=== PATIENT | female | born 1965 | race Caucasian/White ===

== ENCOUNTER → 2016-11-19 | Outpatient (CLI) | payer OTHER ==
--- NOTE | 2016-11-19 11:33 | USB ---
Reason for exam: clinical finding. History: Implants in both breasts, 2010. Physical Findings: Nurse did not find any significant physical abnormalities on exam. US Breast BILAT Right breast ultrasound includes all four quadrants, the retroareolar region and axilla. Finding demonstrates no cystic or solid lesion seen. Left breast ultrasound includes all four quadrants, the retroareolar region and axilla. Finding demonstrates no cystic or solid lesion seen. These results were verbally communicated with the patient and result sheet given to the patient on 11/19/16. ASSESSMENT: Negative, BI-RAD 1 RECOMMENDATION: Follow-up diagnostic mammogram of both breasts. (Due now for mammogram) Manage on a clinical basis with regard to bilateral breast pain.
== END | disposition home or self-care (01) ==
LOC: RADUSWWP 09:49
PROVIDERS: ATTEND Family Medicine
DX: N64.4 Mastodynia (principal)

== ENCOUNTER → 2016-11-20 | Outpatient (CLI) | payer SELFPAY ==
--- NOTE | 2016-11-20 11:29 | MM ---
Reason for exam: screening (asymptomatic). History: Implants in both breasts, 2010. Taking progesterone for 11 years beginning at age 40. Physical Findings: No breast exam performed. MG Screening Mammo Implant/CAD Bilateral CC, MLO, and ID view(s) were taken. Prior study comparison: November 19, 2016, bilateral US breast BILAT. The breast tissue is heterogeneously dense. This may lower the sensitivity of mammography. Bilateral saline implants. Scattered bilateral breast calcifications are present. Many of these are vascular calcifications. Some linear, possibly secretory. Some are curvilinear, possibly milk of calcium. As a discrete group is not seen, a 6 month follow up is recommended at which time lateral views can be included. These results were verbally communicated with the patient and result sheet given to the patient on 11/20/16. ASSESSMENT: Probably benign, BI-RAD 3 RECOMMENDATION: Follow-up diagnostic mammogram of both breasts in 6 months. (only implant displacement views, include bilateral lateral views) [facility]
== END | disposition home or self-care (01) ==
LOC: RADMAMWWP 10:19
PROVIDERS: ATTEND Family Medicine
DX: Z12.31 Encounter for screening mammogram for malignant neoplasm of breast (principal); Z98.82 Breast implant status

== ENCOUNTER 2017-09-06 02:02 | Emergency (ER) | payer BC, OTHER ==
[2017-09-06 02:09] VITALS: BP 148/77; PULSE 89; RESP 18; TEMP 98.3
--- NOTE | 2017-09-06 02:28 | XR ---
EXAMINATION TYPE: XR foot complete RT DATE OF EXAM: 09/06/2017 COMPARISON: NONE HISTORY: Right foot pain TECHNIQUE: 3 views FINDINGS: I see no fracture nor dislocation. Metatarsals are intact. Joint spaces are normal. IMPRESSION: Negative right foot exam.
--- NOTE | 2017-09-06 02:30 | XR ---
EXAMINATION TYPE: XR ankle complete RT DATE OF EXAM: 09/06/2017 COMPARISON: NONE HISTORY: Pain TECHNIQUE: 3 views. FINDINGS: Ankle mortise is anatomic. I see no fracture nor dislocation. Joint spaces are normal. IMPRESSION: Normal right ankle
[2017-09-06] MEDS ORDERED: traMADol 50 MG STARTER PACK 3 TAB BTL PO STA (03:41)
[2017-09-06] MEDS ORDERED: IBUPROFEN 600 MG TAB PO STA (03:41)
--- NOTE | 2017-09-06 03:41 | ED ---
Fall HPI - General Chief Complaint: Fall Stated Complaint: Fall, ankle injury Time Seen by Provider: 09/06/17 02:50 Source: patient Mode of arrival: wheelchair - History of Present Illness Initial Comments: This patient's 52-year-old woman who presents to be evaluated for right ankle injury. The patient states that she had been helping to search for her missing daughter and had climbed over a fence and then fallen. She states that the time she had a fair amount of adrenaline going and was able to walk on the ankle without too much pain. She states that now that he adrenaline has subsided she is having significant pain with walking. She indicates the lateral aspect of the ankle. No previous surgeries or fractures. MD Complaint: fall -: hour(s) Fall From: other (Climbing a fence) When Fall Occurred: 1-[address] Fall Occurred: other Loss of Consciousness: none Prolonged Down Time?: no Symptoms Prior to Fall: none Location - Extremities: Right: Ankle Severity: severe Quality: aching - Related Data Previous Rx's Medication Instructions Recorded Ibuprofen [Motrin] 600 mg PO Q8HR PRN #20 tab 09/06/17 Allergies Allergy/AdvReac Type Severity Reaction Status Date / Time tetracycline Allergy Rash/Hives Verified 09/06/17 02:09 Review of Systems ROS Statement: Those systems with pertinent positive or pertinent negative responses have been documented in the HPI. ROS Other: All systems not noted in ROS Statement are negative. Constitutional: Denies: fever, weakness Musculoskeletal: Reports: as per HPI, joint swelling, arthralgia Skin: Denies: rash Neurological: Denies: headache, weakness, numbness Past Medical History Past Medical History: No Reported History History of Any Multi-Drug Resistant Organisms: None Reported Past Surgical History: Tonsillectomy Past Psychological History: Anxiety Smoking Status: Never smoker Past Alcohol Use History: None Reported Past Drug Use History: None Reported General Exam Limitations: no limitations General appearance: alert, in no apparent distress Extremities exam: Present: tenderness, normal capillary refill, joint swelling. Absent: calf tenderness Right Knee exam: Present: normal inspection, full ROM. Absent: tenderness, swelling Ankle exam: Present: tenderness (Lateral malleolus), swelling (Lateral malleolus ), abrasion, ecchymosis. Absent: laceration, deformity, crepitus, dislocation, erythema Neurovascular tendon exam: Present: no vascular compromise. Absent: pulse deficit, abnormal cap refill, motor deficit, sensory deficit, decreased fine/ light touch Skin exam: Present: warm, dry, normal color, abrasion. Absent: rash Course Vital Signs 09/06/17 02:06 Temperature 98.3 F Pulse Rate 89 Respiratory 18 Rate Blood Pressure 148/77 O2 Sat by Pulse 100 Oximetry Disposition Clinical Impression: Fall, Ankle sprain Disposition: HOME SELF-CARE Condition: Good Instructions: Ankle Sprain (ED) Prescriptions: Ibuprofen [Motrin] 600 mg PO Q8HR PRN #20 tab PRN Reason: Pain Is patient prescribed a controlled substance at d/c from ED?: No Referrals: Conrad Rizvi MD [Primary Care Provider] - 1-2 days Claudio Bahena DO [Doctor of Osteopathic Medicine] - 1-2 days
== END 2017-09-06 04:16 | disposition home or self-care (01) ==
LOC: EC 02:02
DX: S93.401A Sprain of unspecified ligament of right ankle, initial encounter (principal); Z88.1 Allergy status to other antibiotic agents; W17.89XA Other fall from one level to another, initial encounter; Y92.89 Other specified places as the place of occurrence of the external cause; Y93.39 Activity, other involving climbing, rappelling and jumping off
CPT/HCPCS: 73610; 73630; 99283; 29515; L4350

== ENCOUNTER 2017-09-24 10:13 | Inpatient (IN) | payer BC, MEDICAID ==
--- NOTE | 2017-09-24 11:16 | ED ---
Psych HPI - General Chief Complaint: Psychiatric Symptoms Stated Complaint: mental health - petitioned Time Seen by Provider: 09/24/17 10:33 Source: patient, RN notes reviewed Mode of arrival: ambulatory Limitations: no limitations - History of Present Illness Initial Comments: This a 52-year-old female presents emergency Department with police for psychiatric evaluation. Patient was petitioned by family for bizarre behavior. Patient denies any complaints herself. She denies suicidal or homicidal ideation. Patient states that she did have a recent family issues where her daughter ran away and has been traumatic. Patient denies any alcohol or drug use. Denies any physical complaints. Patient is on Wellbutrin, Xanax states that her Xanax doesn't work so she has tried other benzodiazepines. - Related Data Home Medications Medication Instructions Recorded Confirmed ALPRAZolam [Xanax] 1 mg PO HS 09/24/17 09/24/17 Citalopram Hydrobromide 40 mg PO DAILY 09/24/17 09/24/17 [Citalopram HBr] Fluticasone Nasal [place] [Flonase 2 spr EA NOSTRIL DAILY 09/24/17 09/24/17 Nasal [place]] Thyroid,Pork [Thyroid] 60 mg PO DAILY 09/24/17 09/24/17 buPROPion XL [Wellbutrin Xl] 150 mg PO DAILY 09/24/17 09/24/17 Allergies Allergy/AdvReac Type Severity Reaction Status Date / Time tetracycline Allergy Rash/Hives Verified 09/24/17 10:31 Review of Systems ROS Statement: Those systems with pertinent positive or pertinent negative responses have been documented in the HPI. ROS Other: All systems not noted in ROS Statement are negative. Past Medical History Past Medical History: No Reported History Additional Past Medical History / Comment(s): celiac History of Any Multi-Drug Resistant Organisms: None Reported Past Surgical History: Tonsillectomy Past Psychological History: Anxiety Smoking Status: Never smoker Past Alcohol Use History: None Reported Past Drug Use History: None Reported General Exam Limitations: no limitations General appearance: alert, in no apparent distress Head exam: Present: atraumatic, normocephalic, normal inspection Neck exam: Present: normal inspection, full ROM. Absent: tenderness, meningismus, lymphadenopathy Respiratory exam: Present: normal lung sounds bilaterally. Absent: respiratory distress, wheezes, rales, rhonchi, stridor Cardiovascular Exam: Present: regular rate, normal rhythm, normal heart sounds. Absent: systolic murmur, diastolic murmur, rubs, gallop, clicks GI/Abdominal exam: Present: soft, normal bowel sounds. Absent: distended, tenderness, guarding, rebound, rigid Neurological exam: Present: alert, oriented X3, CN II-XII intact Skin exam: Present: warm, dry, intact, normal color. Absent: rash Course Vital Signs 09/24/17 10:25 Temperature 98.2 F Pulse Rate 97 Respiratory 18 Rate Blood Pressure 119/76 O2 Sat by Pulse 100 Oximetry Medical Decision Making - Lab Data Lab Results 09/24/17 Range/Units 11:17 Urine Opiates Screen Not Detected (NotDetected) Ur Oxycodone Screen Not Detected (NotDetected) Urine Methadone Screen Not Detected (NotDetected) Ur Propoxyphene Screen Not Detected (NotDetected) Ur Barbiturates Screen Not Detected (NotDetected) U Tricyclic Antidepress Not Detected (NotDetected) Ur Phencyclidine Scrn Not Detected (NotDetected) Ur Amphetamines Screen Not Detected (NotDetected) U Methamphetamines Scrn Not Detected (NotDetected) U Benzodiazepines Scrn Detected H (NotDetected) Urine Cocaine Screen Not Detected (NotDetected) U Marijuana (THC) Screen Not Detected (NotDetected) Disposition Clinical Impression: Depression Disposition: ADMITTED IP TO THIS [facility] Condition: Stable Referrals: Conrad Rizvi MD [Primary Care Provider] - 1-2 days
[2017-09-24 11:41] LABS: Amphetamine Screen,Urine Not Detected (NotDetected); Barbiturate Screen,Urine Not Detected (NotDetected); Benzodiazepines Screen,Urine Detected (NotDetected); Cocaine Screen,Urine Not Detected (NotDetected); Methadone Screen, Urine Not Detected (NotDetected); Opiate Screen,Urine Not Detected (NotDetected); Oxycodone Screen, Urine Not Detected (NotDetected); Phencyclidine Screen,Urine Not Detected (NotDetected); Tricyclic Antidepressant,Urine Not Detected (NotDetected); Urn Cannabinoid Scrn Not Detected (NotDetected)
[2017-09-24] MEDS ORDERED: MAGNESIUM HYDROXIDE 2,400 MG/10 ML CUP PO PRN (15:03)
[2017-09-24] MEDS ORDERED: LORazepam 1 MG TAB PO PRN (15:03)
[2017-09-24] MEDS ORDERED: MAG HYDROX/AL HYDROX/SIMETH 30 ML CUP PO PRN (15:03)
[2017-09-24] MEDS ORDERED: LORazepam 2 MG/ML INJ IM PRN (15:05)
--- NOTE | 2017-09-24 16:46 | P.CONS ---
History of Present Illness - Reason for Consult Hypothyroidism, medical clearance - History of Present Illness 52-year-old female was brought in to the hospital for bizarre behavior, depressive mood. Patient was subsequently admitted to psychiatric floor as consulted for medical clearance. Patient denied any physical complaints denied any fever, chills, nausea, not vomiting, dysuria. Review of Systems REVIEW OF SYSTEMS: CONSTITUTIONAL: No fever, no malaise, no fatigue. HEENT: No recent visual problems or hearing problems. Denied any sore throat. CARDIOVASCULAR: No chest pain, orthopnea, PND, no palpitations, no syncope. PULMONARY: No shortness of breath, no cough, no hemoptysis. GASTROINTESTINAL: No diarrhea, no nausea, no vomiting, no abdominal pain. Normoactive bowel sounds. NEUROLOGICAL: No headaches, no weakness, no numbness. HEMATOLOGICAL: Denies any bleeding or petechiae. GENITOURINARY: Denies any burning micturition, frequency, or urgency. MUSCULOSKELETAL/RHEUMATOLOGICAL: Denies any joint pain, swelling, or any muscle pain. ENDOCRINE: Denies any polyuria or polydipsia. The rest of the 14-point review of systems is negative. Past Medical History Past Medical History: No Reported History Additional Past Medical History / Comment(s): celiac History of Any Multi-Drug Resistant Organisms: None Reported Past Surgical History: Tonsillectomy Past Psychological History: Anxiety Smoking Status: Never smoker Past Alcohol Use History: None Reported Past Drug Use History: None Reported Medications and Allergies Home Medications Medication Instructions Recorded Confirmed Type ALPRAZolam [Xanax] 1 mg PO HS 09/24/17 09/24/17 History Citalopram Hydrobromide 40 mg PO DAILY 09/24/17 09/24/17 History [Citalopram HBr] Fluticasone Nasal [place] [Flonase 2 spr EA NOSTRIL DAILY 09/24/17 09/24/17 History Nasal [place]] Thyroid,Pork [Thyroid] 60 mg PO DAILY 09/24/17 09/24/17 History buPROPion XL [Wellbutrin Xl] 150 mg PO DAILY 09/24/17 09/24/17 History Allergies Allergy/AdvReac Type Severity Reaction Status Date / Time tetracycline Allergy Rash/Hives Verified 09/24/17 10:31 Physical Exam Vitals: Vital Signs Temp Pulse Resp BP Pulse Ox 09/24/17 10:25 98.2 F 97 18 119/76 100 Intake and Output 09/24/17 09/24/17 09/24/17 06:59 14:59 22:59 Other: Weight 56.245 kg PHYSICAL EXAMINATION: GENERAL: The patient is alert and oriented x3, not in any acute distress. Well developed, well nourished. HEENT: Pupils are round and equally reacting to light. EOMI. No scleral icterus. No conjunctival pallor. Normocephalic, atraumatic. No pharyngeal erythema. No thyromegaly. CARDIOVASCULAR: S1 and S2 present. No murmurs, rubs, or gallops. PULMONARY: Chest is clear to auscultation, no wheezing or crackles. ABDOMEN: Soft, nontender, nondistended, normoactive bowel sounds. No palpable organomegaly. MUSCULOSKELETAL: No joint swelling or deformity. EXTREMITIES: No cyanosis, clubbing, or pedal edema. NEUROLOGICAL: Gross neurological examination did not reveal any focal deficits. SKIN: No rashes. Results Labs: Abnormal Lab Results - Last 24 Hours (Table) 09/24/17 Range/Units 11:17 U Benzodiazepines Scrn Detected H (NotDetected) Assessment and Plan Plan: -Hypothyroidism continue with [place] Thyroid. TSH is being obtained CBC and basic metabolic profile is being up and which are appropriate. -Severe depression and other psychiatric issues: Management as per primary service We'll sign off at this point of time please call us back if needed.
[2017-09-24 21:32] LABS: Appearance,Urine Cloudy (Clear); Bilirubin,Urine Negative (Negative); Blood,Urine Negative (Negative); Calcium Oxalate Crystals,Urine Occasional /hpf; Color,Urine Yellow; Glucose,Urine (UA) Negative (Negative); Hyaline Casts,Urine 1 /lpf (0-2); Ketones,Urine Trace (Negative); Leukocyte Esterase,Urine Negative (Negative); Mucus,Urine Occasional /hpf; Nitrite,Urine Negative (Negative); PH, Urine 5.5 (5.0-8.0); Protein,Urine Negative (Negative); RBC,Urine 4 /hpf (0-5); Specific Gravity,Urine 1.012 (1.001-1.035); Squamous Epithelial Cell,Urine 1 /hpf (0-4); Urobilinogen,Urine <2.0 mg/dL (<2.0); WBC,Urine 2 /hpf (0-5)
[2017-09-25 09:09] LABS: Basophils % (A) 1 %; Eosinophils # (A) 0.1 k/uL (0-0.7); Eosinophils % (A) 1 %; HCT 39.2 % (34.0-46.0); HGB 13.1 gm/dL (11.4-16.0); Lymphocytes % (A) 25 %; MCHC 33.4 g/dL (31.0-37.0); MCV 92.7 fL (80.0-100.0); Mean Platelet Volume 8.1; Monocytes # (A) 0.2 k/uL (0-1.0); Monocytes % (A) 5 %; Neutrophils # (A) 2.7 k/uL (1.3-7.7); Neutrophils % (A) 66 %; Platelet Count 166 k/uL (150-450); RBC 4.23 m/uL (3.80-5.40); RDW 12.3 % (11.5-15.5); WBC 4.1 k/uL (3.8-10.6)
[2017-09-25] MEDS: FLUTICASONE 50MCG/SPRAY NASAL 16GM EA NOSTRIL SCH (09:29)
[2017-09-25] MEDS: THYROID, PORK 30 MG TAB PO SCH (09:29)
[2017-09-25] MEDS: buPROPion SR 150 MG TABLET.ER PO SCH (10:09)
[2017-09-25] MEDS: IBUPROFEN 200 MG TAB PO PRN (10:09)
[2017-09-25 10:10] LABS: ALT 26 U/L (9-52); AST 25 U/L (14-36); Albumin 4.7 g/dL (3.5-5.0); Alkaline Phosphatase 63 U/L (38-126); Anion Gap 11 mmol/L; Blood Urea Nitrogen 9 mg/dL (7-17); Carbon Dioxide 24 mmol/L (22-30); Chloride 106 mmol/L (98-107); Glucose 111 mg/dL (74-99); Potassium 4.1 mmol/L (3.5-5.1); Sodium 141 mmol/L (137-145); Total Bilirubin 0.5 mg/dL (0.2-1.3); Total Protein 7.2 g/dL (6.3-8.2)
[2017-09-25 11:24] VITALS: BMI 20.5
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
[2017-09-25] MEDS: MELATONIN 3 MG TABLET PO SCH (19:57)
[2017-09-25] MEDS: ACETAMINOPHEN TAB 325 MG TAB PO PRN (19:58)
[2017-09-26] MEDS: FLUTICASONE 50MCG/SPRAY NASAL 16GM EA NOSTRIL SCH (08:35)
[2017-09-26] MEDS: buPROPion SR 150 MG TABLET.ER PO SCH (08:35)
[2017-09-26] MEDS: THYROID, PORK 30 MG TAB PO SCH (08:35)
[2017-09-26] MEDS: CYCLOBENZAPRINE 5 MG TAB PO PRN (12:10)
--- NOTE | 2017-09-26 12:24 | PN ---
PROGRESS NOTE Patient seen, interviewed, found very sad and withdrawn. The patient reports that it is a misunderstanding that she is here. She reports that her sister wrote a letter stating that she is not a fit mother. She reports that when she was a kid her mother loved her more and her sister did not get much love so she is trying to be mean to her. It is not her fault that her mother gave more love to her. She thinks she is all fine and she needs to go home. She has been tearful during the interview. She is sad. She is upset about her daughter who has been hallucinating. She is concerned and worried about her. Her anxiety is getting worse. She reports now she started on Wellbutrin, which she took it this morning and tolerated it well. Reporting no side effects. She also reports not sleeping well last night because of the chronic neck pain and she said the pillows are not good as much. She denies any active suicidal or homicidal ideation. Denies hearing voices or seeing things. OBJECTIVE: MENTAL STATUS EXAMINATION: Patient is alert, awake, oriented x4. Has poor eye contact. Speech few word sentences. Mood dysphoric and anxious with congruent affect. She is tearful during the interview. Denies any suicidal, homicidal ideation. She denies hearing voices or seeing things. No paranoid delusions. Intellect is average. Attention is good. Insight, judgment, improving slowly gradually. ASSESSMENT: Adjustment disorder with depressed mood and anxiety features. PLAN: Will continue with the current medications for now as she has been tolerating well and reporting no side effects. The patient requested Flexeril, so we will use a small dose of Flexeril to help with the neck pain. Encouraged groups and meetings, supportive provided. MMODL / IJN: [id number] /
[2017-09-26] MEDS: IBUPROFEN 200 MG TAB PO PRN (13:44)
[2017-09-26] MEDS: MELATONIN 3 MG TABLET PO SCH (20:06)
[2017-09-27] MEDS: CYCLOBENZAPRINE 5 MG TAB PO PRN (01:03)
[2017-09-27] MEDS: ACETAMINOPHEN TAB 325 MG TAB PO PRN (01:16)
[2017-09-27] MEDS: buPROPion SR 150 MG TABLET.ER PO SCH (08:26)
[2017-09-27] MEDS: FLUTICASONE 50MCG/SPRAY NASAL 16GM EA NOSTRIL SCH (08:26)
[2017-09-27] MEDS: THYROID, PORK 30 MG TAB PO SCH (08:26)
[2017-09-27] MEDS ORDERED: IBUPROFEN 400 MG TAB PO PRN (13:45)
--- NOTE | 2017-09-27 14:07 | PN ---
PROGRESS NOTE DATE OF SERVICE: Today is September 27, 2017. The patient is seen and interviewed, found sitting in her room. Found in mild distress as she has been hurting in her neck. She reports that her neck is still bothering her and she could not sleep due to neck pain. She stated Flexeril did help her to some extent, but she would like to take some Motrin and would like to have some increase in Flexeril. She still feels that she is better and she thinks that it is her daughter who is suicidal and she is not. She is working on coping skills. She is denying any other issues. MENTAL STATUS EXAMINATION: Patient is alert and oriented x4. Has fair eye contact. Speech few word sentences. Mood dysphoric and irritable with counter affect. She denies any suicidal ideation. I did not see her responding to internal stimuli and no paranoid delusions. Intellect is average. Attention is better. Insight and judgment improving slowly and gradually. ASSESSMENT: Adjustment disorder with depressed mood and anxiety features. PLAN: We will start her on Motrin using the 400 mg and would titrate up the dose of Flexeril to help with pain component to give her some relief. We will encouraged to attend groups and meetings. Supportive therapy provided. MMODL / IJN: [id number] /
[2017-09-27] MEDS: MELATONIN 3 MG TABLET PO SCH (20:22)
[2017-09-27] MEDS: CYCLOBENZAPRINE 10 MG TAB PO PRN (20:45)
[2017-09-28 06:35] VITALS: BP 115/67; PULSE 71; RESP 18; TEMP 97.8
[2017-09-28] MEDS: FLUTICASONE 50MCG/SPRAY NASAL 16GM EA NOSTRIL SCH (08:12)
[2017-09-28] MEDS: THYROID, PORK 30 MG TAB PO SCH (08:13)
[2017-09-28] MEDS: buPROPion SR 150 MG TABLET.ER PO SCH (08:13)
[2017-09-28] MEDS: CYCLOBENZAPRINE 10 MG TAB PO PRN (11:19)
--- NOTE | 2017-09-28 11:42 | P.DS ---
Providers Date of admission: 09/24/17 14:26 Expected date of discharge: 09/28/17 Attending physician: Cheyenne Aparicio MD Consults: 09/24/17 15:03 Consult Physician Routine Consulting Provider: Conrad Rizvi Consult Reason/Comments: follow up H & P Do you want consulting provider notified?: Yes Primary care physician: Conrad Rizvi Hospital Course: Discharge Diagnosis: adjustment reaction with mixed features Reason for Admission: Patient is a 52-year-old female was brought to the emergency room on a pickup order. A petition was completed by her sister. Apparently several weeks ago the patient had filed to parts picker orders on her daughter dating that the patient was having psychotic symptoms the patient was seen in the emergency room and released. Patient states to me that her sister who filed the petition has made up all of these lies and states that none of the allegations on the petition are true. She states her sister Xuan who completed the petition has made these lies up because "I am the child that took away the love from her mother". Patient states that Xuan blames her for her daughter's leaving the house, patient describes it as walking off. She states that her sister lives in [place] and had come up here to help her sister-in- law. Patient denies any of the allegations that she checks that her children cell phones, takes their paychecks and then distributes the money, states that she is not controlling and states that none of the allegations are true. She stated that her sister Xuan is always trying to do a "broderick act" on their other sister Kerry who also lives in [place]. Patient states that when her 21- year-old daughter left the house without taking her medication for her clothing she became quite upset and nervous stating that she went to her primary care physician who restarted her on Celexa on September 05 2 doses of 40 mg then the patient complained of side effects and was switched to Wellbutrin 150 mg and states it's been working well. She states that she is also been using Xanax 0.5 mg 1-2 times a week at night to help with her sleep. Patient states she is very concerned about her daughter because she states that her daughter been hearing and seeing things and had been treated by her primary care physician with Celexa for the symptoms and would not discuss this. Patient states that these statements are true and that it is her daughter who had these symptoms and that she is concerned about her because she's not on any medication and continues to deny the symptoms to everyone who interviews her. When I confronted the patient with the fact that there were numerous allegations on the petition and another unsigned attached letter the patient denied all of it stating that none of these allegations were true and stated that her sister hated her and this is why they were being made. When I questioned the patient regarding why the police were called to their [place] she stated it's because her son was upset that no one in the [place] and helped him locate her daughter and he decided to write a song saying ravene to the mor[place] because he had decided that he wasn't going to go there anymore. The patient was unable to give an explanation for why that the behavior would have elicited the police being called to the [place]. She states it's because the [place] wouldn't allow him to singing the song and so they therefore called the police. Patient is unable to explain to me why her sister in [place] would've been so concerned to have petition the patient for an evaluation and she again cannot come up with an explanation. Patient denies any current symptomatology, denies any auditory or visual hallucinations currently or in the past no paranoid or delusional ideation is elicited from the patient. Patient states that she is upset and anxious and worried about her daughter because she left the house without her medication her clothes. She states that she is not suicidal, she is not feeling depressed just sad over the fact that her daughter is locked away. She states that she has never made any suicide attempts in the past. Patient denies any complaints of allan. Patient also states that protective services came to the house the day prior to her admission she is unaware of why they were called to the house other than the allegations that her sister and made on the petition. Patient continues to deny that any of these allegations were in fact true. Mental status on Admission: Appearance/Attitude: Patient is appropriately dressed and makes eye contact and was cooperative. Behavior: Patient did not exhibit any psychomotor agitation or retardation. Speech/Language: Patient's speech was spontaneous of normal volume and rhythm and she was coherent. Thought Process: Patient was goal-directed however continue to take the conversation back to that her daughter walking away is the root of all the current problems, was no evidence of flight of ideas or loose associations Thought Content: Patient denied any auditory or visual hallucinations no delusions or paranoid ideation were elicited. Patient was insisted that none of the allegations on the petition or on a letter that accompanied the petition or true, stating that everybody is lying about what is going on and this is all secondary to her daughter not getting the proper care and then walking off. Patient states that she has no sleep problems and only uses the Xanax 1-2 times a week. She reports no appetite disturbance but states she has celiac disease and uses [id number] enzymes. Suicidal/Homicidal Ideation: Patient denied any current suicidal or homicidal ideation. Sensorium/Cognition: Patient was alert and oriented to person, place, time and her recent and remote memory were grossly intact. Mood/Affect: Patient's mood was bland and her affect was blunted and was only one time and the patient appeared slightly tearful when discussing her daughter Insight/Judgment: Patient's insight and judgment are limited Hospital Course: Patient agreed to sign in voluntarily, was placed on routine precautions and group and activity therapy were ordered. Patient also had a routine laboratory studies as well as a physical medical consultation. Patient wishes to continue on her Wellbutrin 1 or 50 mg sustained release in the morning that her primary care physician had begun and so she was continued on this. Patient was also begun on melatonin 3 mg at bedtime to target her sleep. Patient continued to report no symptoms of suicidal ideation, no psychotic features were elicited. Patient continued to express her concern regarding her daughter, age 21 who had per the patient "run off" and she was concerned regarding her psychiatric health. Patient attended groups and activities and denied any of the allegations that her sister had made on the petition. She continued to state that her sister was jealous of her because her mother loved her better, as well as stating that her sister blames her for her daughter running off. Patient was not started on Xanax as the patient had been taking it infrequently at home and I suggested to her that she discontinue it when she is discharged and used the melatonin to target her sleep. Patient was also continued on her medications for her medical problems. Patient reported no side effects from the medication and felt she was ready to return home. Patient 's TSH was slightly elevated and I discussed with the patient following up with her primary care physician regarding this. Allergies tetracycline Allergy (Verified 09/24/17 10:31) Rash/Hives Laboratory Last Values WBC 4.1 k/uL (3.8-10.6) 09/25/17 08:30 RBC 4.23 m/uL (3.80-5.40) 09/25/17 08:30 Hgb 13.1 gm/dL (11.4-16.0) 09/25/17 08:30 Hct 39.2 % (34.0-46.0) 09/25/17 08:30 MCV 92.7 fL (80.0-100.0) 09/25/17 08:30 MCH 31.0 pg (25.0-35.0) 09/25/17 08:30 MCHC 33.4 g/dL (31.0-37.0) 09/25/17 08:30 RDW 12.3 % (11.5-15.5) 09/25/17 08:30 Plt Count 166 k/uL (150-450) 09/25/17 08:30 Neutrophils % 66 % 09/25/17 08:30 Lymphocytes % 25 % 09/25/17 08:30 Monocytes % 5 % 09/25/17 08:30 Eosinophils % 1 % 09/25/17 08:30 Basophils % 1 % 09/25/17 08:30 Neutrophils # 2.7 k/uL (1.3-7.7) 09/25/17 08:30 Lymphocytes # 1.0 k/uL (1.0-4.8) 09/25/17 08:30 Monocytes # 0.2 k/uL (0-1.0) 09/25/17 08:30 Eosinophils # 0.1 k/uL (0-0.7) 09/25/17 08:30 Basophils # 0.0 k/uL (0-0.2) 09/25/17 08:30 Sodium 141 mmol/L (137-145) 09/25/17 08:30 Potassium 4.1 mmol/L (3.5-5.1) 09/25/17 08:30 Chloride 106 mmol/L (98-107) 09/25/17 08:30 Carbon Dioxide 24 mmol/L (22-30) 09/25/17 08:30 Anion Gap 11 mmol/L 09/25/17 08:30 BUN 9 mg/dL (7-17) 09/25/17 08:30 Creatinine 0.70 mg/dL (0.52-1.04) 09/25/17 08:30 Est GFR (CKD-EPI)AfAm >90 (>60 ml/min/1.73 sqM) 09/25/17 08:30 Est GFR (CKD-EPI)NonAf >90 (>60 ml/min/1.73 sqM) 09/25/17 08:30 Glucose 111 mg/dL (74-99) H 09/25/17 08:30 Calcium 10.0 mg/dL (8.4-10.2) 09/25/17 08:30 Total Bilirubin 0.5 mg/dL (0.2-1.3) 09/25/17 08:30 AST 25 U/L (14-36) 09/25/17 08:30 ALT 26 U/L (9-52) 09/25/17 08:30 Alkaline Phosphatase 63 U/L (38-126) 09/25/17 08:30 Total Protein 7.2 g/dL (6.3-8.2) 09/25/17 08:30 Albumin 4.7 g/dL (3.5-5.0) 09/25/17 08:30 TSH 6.610 mIU/L (0.465-4.680) H 09/25/17 08:30 Urine Color Yellow 09/24/17 11:17 Urine Appearance Cloudy (Clear) H 09/24/17 11:17 Urine pH 5.5 (5.0-8.0) 09/24/17 11:17 Ur Specific [place] 1.012 (1.001-1.035) 09/24/17 11:17 Urine Protein Negative (Negative) 09/24/17 11:17 Urine Glucose (UA) Negative (Negative) 09/24/17 11:17 Urine Ketones Trace (Negative) H 09/24/17 11:17 Urine Blood Negative (Negative) 09/24/17 11:17 Urine Nitrite Negative (Negative) 09/24/17 11:17 Urine Bilirubin Negative (Negative) 09/24/17 11:17 Urine Urobilinogen <2.0 mg/dL (<2.0) 09/24/17 11:17 Ur Leukocyte Esterase Negative (Negative) 09/24/17 11:17 Urine RBC 4 /hpf (0-5) 09/24/17 11:17 Urine WBC 2 /hpf (0-5) 09/24/17 11:17 Ur Squamous Epith Cells 1 /hpf (0-4) 09/24/17 11:17 Calcium Oxalate Crystal Occasional /hpf (None) H 09/24/17 11:17 Hyaline Casts 1 /lpf (0-2) 09/24/17 11:17 Urine Mucus Occasional /hpf (None) H 09/24/17 11:17 Urine HCG, Qual Not Detected (Not Detectd) 09/24/17 11:17 Urine Opiates Screen Not Detected (NotDetected) 09/24/17 11:17 Ur Oxycodone Screen Not Detected (NotDetected) 09/24/17 11:17 Urine Methadone Screen Not Detected (NotDetected) 09/24/17 11:17 Ur Propoxyphene Screen Not Detected (NotDetected) 09/24/17 11:17 Ur Barbiturates Screen Not Detected (NotDetected) 09/24/17 11:17 U Tricyclic Antidepress Not Detected (NotDetected) 09/24/17 11:17 Ur Phencyclidine Scrn Not Detected (NotDetected) 09/24/17 11:17 Ur Amphetamines Screen Not Detected (NotDetected) 09/24/17 11:17 U Methamphetamines Scrn Not Detected (NotDetected) 09/24/17 11:17 U Benzodiazepines Scrn Detected (NotDetected) H 09/24/17 11:17 Urine Cocaine Screen Not Detected (NotDetected) 09/24/17 11:17 U Marijuana (THC) Screen Not Detected (NotDetected) 09/24/17 11:17 Discharge Mental Status: Appearance/Attitude: Patient is appropriately dressed, makes good eye contact and was cooperative. Behavior: Patient did not exhibit any psychomotor retardation or agitation. Speech/Language: patient's speech was spontaneous of normal volume and rhythm and she was coherent. Thought Process: patient was goal-directed there is no evidence of loose association or flight of ideas. Thought Content: patient denied any auditory or visual hallucinations no delusions or paranoid ideation were elicited. Patient reported that she was still concerned about her daughter who ran away from home stating that she felt she had psychiatric problems that needed to be addressed. Patient states that she still was mourning the of her brother as well. Patient reported that she was sleeping well and her appetite was good. She reported no side effects from the Wellbutrin. Suicidal/Homicidal Ideation: patient denied any current suicidal or homicidal ideation Sensorium/Cognition: patient was alert and oriented to person, place, and time and her recent and remote memory were grossly intact. Mood/Affect: patient's mood was pleasant and her affect was appropriate, patient would become tearful when discussing her brother's . Insight/Judgment: patient's insight and judgment are fair Risk Assessment: patient's risk for self harm is low this patient has no prior history of suicide attempts and no drug or alcohol use history Discharge Plan: patient will return home and will continue on Wellbutrin 150 mg sustained release in the morning and melatonin 3 mg at bedtime. She will also continue on her other medications for her medical problems. Patient states she has sufficient medication at home and does not require any prescriptions. Patient will continue to go to [facility] counseling and was encouraged to be compliant with appointments and medication. Patient was also instructed to follow-up with her primary care physician regarding her slightly elevated TSH. Patient Condition at Discharge: Stable Plan - Discharge Summary New Discharge Prescriptions: New Cyclobenzaprine [Flexeril] 10 mg PO BID PRN tab PRN Reason: Muscle Spasm Melatonin 3 mg PO HS tablet Continue Thyroid,Pork [Thyroid] 60 mg PO DAILY buPROPion XL [Wellbutrin XL] 150 mg PO DAILY Fluticasone Nasal [place] [Flonase Nasal [place]] 2 spr EA NOSTRIL DAILY Discontinued ALPRAZolam [Xanax] 1 mg PO HS Citalopram Hydrobromide [Citalopram HBr] 40 mg PO DAILY Discharge Medication List Fluticasone Nasal [place] [Flonase Nasal [place]] 2 spr EA NOSTRIL DAILY 09/24/17 [ History] Thyroid,Pork [Thyroid] 60 mg PO DAILY 09/24/17 [History] buPROPion XL [Wellbutrin XL] 150 mg PO DAILY 09/24/17 [History] Cyclobenzaprine [Flexeril] 10 mg PO BID PRN tab 09/28/17 [Rx] Melatonin 3 mg PO HS tablet 09/28/17 [Rx] Follow up Appointment(s)/Referral(s): Abdoul[facility] Thomas [Outside] - 09/29/17 3:00 pm (Diya Holden) Conrad Rizvi MD [Primary Care Provider] - 1-2 days Activity/Diet/Wound Care/Special Instructions: activity and diet as tolerated. no guns or weapons in the home. refrain from alcohol and drugs not prescribed by doctor. attend all follow up, after care appointments as scheduled. take all medications as prescribed. please return to [facility] if symptoms worsen. Discharge Disposition: HOME SELF-CARE
== END 2017-09-28 13:18 | disposition home or self-care (01) | DRG 882 ==
LOC: EC 10:13 → 3MHU 14:26
PROVIDERS: ADMIT Psychiatry & Neurology Psychiatry; ATTEND Psychiatry & Neurology Psychiatry
DX: F43.23 Adjustment disorder with mixed anxiety and depressed mood (principal); E03.9 Hypothyroidism, unspecified; G89.29 Other chronic pain; K90.0 Celiac disease; Z62.810 Personal history of physical and sexual abuse in childhood; Z82.49 Family history of ischemic heart disease and other diseases of the circulatory system; Z88.1 Allergy status to other antibiotic agents; Z79.51 Long term (current) use of inhaled steroids; Z79.899 Other long term (current) drug therapy; Z79.890 Hormone replacement therapy
CPT/HCPCS: 80053; 80306; 81001; 81025; 82075; 84443; 85025; 99285

== ENCOUNTER → 2018-06-18 | Outpatient (CLI) | payer BC ==
--- NOTE | 2018-06-18 15:16 | US ---
EXAMINATION TYPE: US abdomen complete DATE OF EXAM: 06/18/2018 COMPARISON: 07/21/2014 CLINICAL HISTORY: R10.13 EPIGASTRIC PAIN. Epigastric pain for 2 months EXAM MEASUREMENTS: Liver Length: 13.1 cm Gallbladder Wall: 0.1 cm CBD: 0.2 cm Spleen: 8.1 cm Right Kidney: 10.1 x 3.8 x 4.3 cm Left Kidney: 10.1 x 4.4 x 4.0 cm Pancreas: visualized portions appear wnl Liver: appears wnl Gallbladder: no evidence of stones Evidence for sonographic Ocampo's sign: no CBD: appears wnl Spleen: appears wnl Right Kidney: no evidence of hydronephrosis Left Kidney: no evidence of hydronephrosis Upper IVC: wnl Abd Aorta: wnl IMPRESSION: 1. Normal abdomen ultrasound as visualized.
== END | disposition home or self-care (01) ==
LOC: RADUSWWP 11:04
PROVIDERS: ATTEND Family Medicine
DX: R10.13 Epigastric pain (principal)
CPT/HCPCS: 76700

== ENCOUNTER → 2020-06-12 | Outpatient (CLI) | payer OTHER | END | disposition home or self-care (01) | LOC: LABWHC1 15:55 | PROVIDERS: ATTEND Family Medicine | DX: Z20.822 Contact with and (suspected) exposure to COVID-19 (principal) | CPT/HCPCS: U0003; C9803 ==

== ENCOUNTER 2023-02-17 13:58 | Emergency (ER) | payer BC ==
--- NOTE | 2023-02-17 14:44 | ED ---
General Adult HPI - General Source: patient, RN notes reviewed Mode of arrival: ambulatory Limitations: no limitations <Santhosh Acosta - Last Filed: 02/17/23 14:43> <Mae Garibay - Last Filed: 02/17/23 23:54> - General Chief complaint: Recheck/Abnormal Lab/Rx Stated complaint: C Diff Time Seen by Provider: 02/17/23 14:43 - History of Present Illness Initial comments: 58 show female presents emergency Department chief complaint of dehydration, C. diff. Patient states she was on multiple antibiotics for ear infections. Patient states she positive for C. diff was placed on vancomycin which symptoms worsen. Patient states that she took a course of Difficle she states that it helped but states that there is still persistent. Patient was evaluated by base be advised, emergency from. (Santhosh Acosta) Patient is a healthy 58yo F who presents to the emergency department today for treatment of C. diff diarrhea. Patient reports that she started having diarrhea in September, in early December she stood positive for C. diff and was started on oral vancomycin, patient reports she took a couple days of this side felt it made the diarrhea worse and she developed a rash around her eyes and interacts loss of she discontinued use of that. She was later started on a course of deficit which she reports she took 6 days of before the diarrhea got worse and she decided to discontinue that. He contacted her primary care provider who advised her that she should come to the ER because she may need IV treatment. (Mae Garibay) - Related Data Home Medications Medication Instructions Recorded Confirmed Albuterol Inhaler [Ventolin Hfa 2 puff INHALATION RT-Q6H PRN 02/17/23 02/17/23 Inhaler] Brexpiprazole [Rexulti] 0.5 mg PO DAILY 02/17/23 02/17/23 Cyclobenzaprine [Flexeril] 10 mg PO HS PRN 02/17/23 02/17/23 Desvenlafaxine Succinate [Pristiq 50 mg PO DAILY 02/17/23 02/17/23 ER] Fluticasone/Umeclidin/Vilanter 1 puff INHALATION RT-DAILY 02/17/23 02/17/23 [Trelegy Ellipta 200-62.5-25] Montelukast [Singulair] 10 mg PO HS 02/17/23 02/17/23 Thyroid,Pork [Mill Machinist Thyroid] 15 mg PO DAILY 02/17/23 02/17/23 Thyroid,Pork [[employer] Thyroid] 60 mg PO DAILY 02/17/23 02/17/23 diazePAM [Valium] 2 mg PO BID PRN 02/17/23 02/17/23 Previous Rx's Medication Instructions Recorded metroNIDAZOLE [Flagyl] 500 mg PO TID #30 tab 02/17/23 Allergies Allergy/AdvReac Type Severity Reaction Status Date / Time tetracycline Allergy Rash/Hives Verified 02/17/23 21:42 Review of Systems ROS Other: All systems not noted in ROS Statement are negative. <Santhosh Acosta - Last Filed: 02/17/23 14:43> ROS Other: All systems not noted in ROS Statement are negative. <Mae Garibay - Last Filed: 02/17/23 23:54> ROS Statement: Those systems with pertinent positive or pertinent negative responses have been documented in the HPI. Past Medical History Past Medical History: Thyroid Disorder Additional Past Medical History / Comment(s): celiac History of Any Multi-Drug Resistant Organisms: C-DIFF Past Surgical History: Tonsillectomy Past Anesthesia/Blood Transfusion Reactions: No Reported Reaction Past Psychological History: Anxiety Past Alcohol Use History: None Reported Past Drug Use History: None Reported <Santhosh Acosta - Last Filed: 02/17/23 14:43> General Exam Limitations: no limitations <Santhosh Acosta - Last Filed: 02/17/23 14:43> <Mae Garibay - Last Filed: 02/17/23 23:54> - General Exam Comments Initial Comments: Visual Physical Exam Vital signs reviewed General: Well-appearing, nontoxic, no acute distress. Head: Normocephalic, atraumatic Eyes: PERRLA, EOMI ENT: Airway patent Chest: Nonlabored breathing Skin: No visual rash, normal skin tone Neuro: Alert and oriented 3 Musculoskeletal: No gross abnormalities (Santhosh Acosta) Physical Exam GENERAL: Patient is well-developed and well-nourished. Patient is nontoxic and well-hydrated and is in no distress. HENT: Normocephalic, Atraumatic EYES: PERRL, EOMI PULMONARY: Unlabored respirations CARDIOVASCULAR: RRR Warm and well perfused extremities ABDOMEN: Soft, Non-distended Mild diffuse tenderness SKIN: No rashes or bruising : Deferred NEUROLOGIC: Alert and oriented Normal speech Normal gait MUSCULOSKELETAL: Moving all extremities with no apparent injury PSYCHIATRIC: No SI/HI (Mae Garibay) Course Vital Signs 02/17/23 02/17/23 02/17/23 14:36 21:18 21:20 Temperature 97.9 F Pulse Rate 80 65 Respiratory 18 16 16 Rate Blood Pressure 179/92 146/77 146/77 O2 Sat by Pulse 98 99 99 Oximetry 02/17/23 23:13 Temperature 98.7 F Pulse Rate 57 L Respiratory 16 Rate Blood Pressure 130/59 O2 Sat by Pulse 97 Oximetry Medical Decision Making <Santhosh Acosta - Last Filed: 02/17/23 14:43> - Lab Data Result diagrams: 02/17/23 21:45 02/17/23 21:45 <Mae Garibay - Last Filed: 02/17/23 23:54> - Medical Decision Making I completed the quick note portion of this chart signed Santhosh Acosta PA-C (Santhosh Acosta) Was pt. sent in by a medical professional or institution ([facility], [facility], urgent care, hospital, or fpc...) When possible be specific @ -Yes Did you speak to anyone other than the patient for history (EMS, parent, family, police, friend...)? What history was obtained from this source @ - Did you review nursing and triage notes (agree or disagree)? Why? @ -[I reviewed and agree with nursing and triage notes] Were old charts reviewed (outside hosp., previous admission, EMS record, old EKG, old radiological studies, urgent care reports/EKG's, fpc records)? Report findings @ -[No old charts were reviewed] Differential Diagnosis (chest pain, altered mental status, abdominal pain women, abdominal pain men, vaginal bleeding, weakness, fever, dyspnea, syncope, headache, dizziness, GI bleed, back pain, seizure, CVA, palpatations, mental health)? @ -Differential for diarrhea includes infectious, malabsorption, inflammatory changes EKG interpreted by me (3pts min.). @ -[As above] X-rays interpreted by me (1pt min.). @ -[None done] CT interpreted by me (1pt min.). @ -[None done] U/S interpreted by me (1pt. min.). @ -[None done] What testing was considered but not performed or refused? (CT, X-rays, U/S, labs)? Why? @ -[None] What meds were considered but not given or refused? Why? @ -[None] Did you discuss the management of the patient with other professionals (professionals i.e. , PA, FURNITURE BUILDER, lab, RT, psych nurse, social media assistant, dealer analyst, teacher, uniform patrol police officer, high risk case manager)? Give summary @ -[No] Was smoking cessation discussed for >3mins.? @ -[No] Was critical care preformed (if so, how long)? @ -[No] Were there social determinants of health that impacted care today? How? (Homelessness, low income, unemployed, alcoholism, drug addiction, transportation, low edu. Level, literacy, decrease access to med. care, long-term, rehab)? @ -[No] Was there de-escalation of care discussed even if they declined (Discuss DNR or withdrawal of care, Hospice)? DNR status @ -[No] What co-morbidities impacted this encounter? (DM, HTN, Smoking, COPD, CAD, Cancer, CVA, ARF, Chemo, Hep., AIDS, mental health diagnosis, sleep apnea, morbid obesity)? @ -[None] Was patient admitted / discharged? Hospital course, mention meds given and route, prescriptions, significant lab abnormalities, going to OR and other pertinent info. @ -Discharge The patient was seen and evaluated, history is obtained from the patient. Patient reports persistent diarrhea for nitroglycerin despite taking appropriate medications for it. Labs are obtained today and were unremarkable, patient does not have leukocytosis no significant electrolyte abnormalities normal kidney function. I discussed with the patient that considering she has not completed a course of antibiotics we could try to Flagyl and she was agreeable. First dose was given here and she was discharged home with prescription. Shortly after the patient's discharge for C. diff toxin came back negative, I did contact the patient and discussed this with her, advised she does not need to take the Flagyl as she does not currently have a C. diff infection. Patient's breast understanding. She was advised to follow-up with GI as soon as possible. Undiagnosed new problem with uncertain prognosis? @ -[No] Drug Therapy requiring intensive monitoring for toxicity (Heparin, Nitro, Insulin, Cardizem)? @ -[No] Were any procedures done? @ -[No] Diagnosis/symptom? @ -Diarrhea Acute, or Chronic, or Acute on Chronic? @ -Chronic Uncomplicated (without systemic symptoms) or Complicated (systemic symptoms)? @ -Uncomplicated Side effects of treatment? @ -[No] Exacerbation, Progression, or Severe Exacerbation? @ -[No] Poses a threat to life or bodily function? How? (Chest pain, [place], [place], pneumonia, PE, COPD, DKA, ARF, appy, cholecystitis, CVA, Diverticulitis, Homicidal, Suicidal, threat to staff... and all critical care pts) @ -No (Mae Garibay) - Lab Data Lab Results 02/17/23 02/17/23 02/17/23 Range/Units 21:45 21:45 21:50 WBC 6.8 (3.8-10.6) k/uL RBC 4.20 (3.80-5.40) m/uL Hgb 13.2 (11.4-16.0) gm/dL Hct 39.6 (34.0-46.0) % MCV 94.3 (80.0-100.0) fL MCH 31.4 (25.0-35.0) pg MCHC 33.2 (31.0-37.0) g/dL RDW 12.5 (11.5-15.5) % Plt Count 240 (150-450) k/uL MPV 8.4 Neutrophils % 65 % Lymphocytes % 25 % Monocytes % 6 % Eosinophils % 2 % Basophils % 0 % Neutrophils # 4.4 (1.3-7.7) k/uL Lymphocytes # 1.7 (1.0-4.8) k/uL Monocytes # 0.4 (0-1.0) k/uL Eosinophils # 0.1 (0-0.7) k/uL Basophils # 0.0 (0-0.2) k/uL Sodium 138 (137-145) mmol/L Potassium 4.1 (3.5-5.1) mmol/L Chloride 99 (98-107) mmol/L Carbon Dioxide 28 (22-30) mmol/L Anion Gap 11 mmol/L BUN 8 (7-17) mg/dL Creatinine 0.51 L (0.52-1.04) mg/dL Est GFR (CKD-EPI)AfAm >90 (>60 ml/min/1.73 sqM) Est GFR (CKD-EPI)NonAf >90 (>60 ml/min/1.73 sqM) Glucose 101 H (74-99) mg/dL Calcium 9.6 (8.4-10.2) mg/dL Magnesium 2.1 (1.6-2.3) mg/dL Total Bilirubin 0.3 (0.2-1.3) mg/dL AST 32 (14-36) U/L ALT 22 (4-34) U/L Alkaline Phosphatase 85 (38-126) U/L Total Protein 7.1 (6.3-8.2) g/dL Albumin 4.6 (3.5-5.0) g/dL C. difficile (EIA) Intrp Negative (Negative) Disposition <Santhosh Acosta M - Last Filed: 02/17/23 14:43> Is patient prescribed a controlled substance at d/c from ED?: No <Mae Garibay - Last Filed: 02/17/23 23:54> Clinical Impression: Diarrhea Disposition: HOME SELF-CARE Condition: Stable Additional Instructions: Complete course of Flagyl You cannot have any alcohol while taking this medication or for 48h after completion of the course If symptoms persist follow up with GI and infectious disease Prescriptions: metroNIDAZOLE [Flagyl] 500 mg PO TID #30 tab Referrals: Conrad Rizvi MD [Primary Care Provider] - 1-2 days Lacy Dowling MD [STAFF PHYSICIAN] - 1-2 days Krystle Mccoy MD [STAFF PHYSICIAN] - 1-2 days
[2023-02-17] MEDS ORDERED: SODIUM CHLORIDE 0.9% 1,000 ML IV ONE (21:39)
[2023-02-17 22:05] VITALS: RESP 16
[2023-02-17 22:22] LABS: Basophils % (A) 0 %; Eosinophils # (A) 0.1 k/uL (0-0.7); Eosinophils % (A) 2 %; HCT 39.6 % (34.0-46.0); HGB 13.2 gm/dL (11.4-16.0); Lymphocytes # (A) 1.7 k/uL (1.0-4.8); Lymphocytes % (A) 25 %; MCH 31.4 pg (25.0-35.0); MCHC 33.2 g/dL (31.0-37.0); MCV 94.3 fL (80.0-100.0); Mean Platelet Volume 8.4; Monocytes # (A) 0.4 k/uL (0-1.0); Monocytes % (A) 6 %; Neutrophils # (A) 4.4 k/uL (1.3-7.7); Neutrophils % (A) 65 %; Platelet Count 240 k/uL (150-450); RDW 12.5 % (11.5-15.5); WBC 6.8 k/uL (3.8-10.6)
[2023-02-17 22:32] LABS: ALT 22 U/L (4-34); AST 32 U/L (14-36); African American GFR (CKD) >90 (>60 ml/min/1.73 sqM); Albumin 4.6 g/dL (3.5-5.0); Alkaline Phosphatase 85 U/L (38-126); Anion Gap 11 mmol/L; Blood Urea Nitrogen 8 mg/dL (7-17); Calcium 9.6 mg/dL (8.4-10.2); Carbon Dioxide 28 mmol/L (22-30); Chloride 99 mmol/L (98-107); Glucose 101 mg/dL (74-99); Magnesium 2.1 mg/dL (1.6-2.3); Non-African American GFR(CKD) >90 (>60 ml/min/1.73 sqM); Potassium 4.1 mmol/L (3.5-5.1); Sodium 138 mmol/L (137-145); Total Bilirubin 0.3 mg/dL (0.2-1.3); Total Protein 7.1 g/dL (6.3-8.2)
[2023-02-17] MEDS ORDERED: metroNIDAZOLE 500 MG TAB PO STA (22:57)
[2023-02-17 23:33] VITALS: BP 130/59; PULSE 57; TEMP 98.7
== END 2023-02-17 23:32 | disposition home or self-care (01) ==
LOC: EC 13:58
DX: R19.7 Diarrhea, unspecified (principal); R10.817 Generalized abdominal tenderness; E07.9 Disorder of thyroid, unspecified; F41.9 Anxiety disorder, unspecified; Z79.890 Hormone replacement therapy; Z79.899 Other long term (current) drug therapy; Z88.1 Allergy status to other antibiotic agents
CPT/HCPCS: 36415; 80053; 83630; 83735; 84443; 85025; 87045; 87046; 87324; 96360; 99284

== ENCOUNTER → 2023-12-04 | Outpatient (CLI) | payer BC ==
[2023-12-04 15:14] LABS: Basophils # (A) 0.05 X 10*3/uL (0.00-0.10); Basophils % (A) 0.9 %; Eosinophils # (A) 0.21 X 10*3/uL (0.04-0.35); Eosinophils % (A) 3.8 %; HCT 39.8 % (37.2-46.3); HGB 12.9 g/dL (12.0-15.0); Lymphocytes # (A) 0.93 X 10*3/uL (0.90-5.00); Lymphocytes % (A) 16.8 %; MCH 30.4 pg (27.0-32.0); MCHC 32.4 g/dL (32.0-37.0); MCV 93.9 FL (80.0-97.0); Mean Platelet Volume 10.9 FL (9.5-12.2); Monocytes # (A) 0.49 X 10*3/uL (0.20-1.00); Monocytes % (A) 8.8 %; NRBC Per 100 WBC 0 X 10*3/uL (0.00-0.01); Neutrophils # (A) 3.85 X 10*3/uL (1.80-7.70); Neutrophils % (A) 69.3 %; Platelet Count 292 X 10*3/uL (140-440); RBC 4.24 X 10*6/uL (4.10-5.20); RDW 12.2 % (11.5-14.5); WBC 5.55 X 10*3/uL (4.50-10.00)
[2023-12-04 18:37] LABS: Thyroid Peroxidase Antibodies 10.7 U/mL (0.0-33.0)
[2023-12-04 18:47] LABS: Estradiol <20.0 pg/mL
[2023-12-04 19:42] LABS: Follicle Stimulating Hormone 83.2 mIU/mL; Progesterone 1.7 ng/mL
== END | disposition home or self-care (01) ==
LOC: LABWHC1 10:54
PROVIDERS: ATTEND Midwife
CPT/HCPCS: 36415; 82306; 82670; 83001; 84144; 84403; 84439; 84443; 85025; 86376; 86800